=== PATIENT | female | born 1940 | race Caucasian/White ===

== ENCOUNTER → 2023-07-09 | Outpatient (REF) | payer MEDICARE, OTHER ==
[2023-07-09 12:13] LABS: BASO # 0.1 10^3/uL (0.0-0.2); BASO % 0.6 % (0.0-1.0); EOS # 0.2 10^3/uL (0.0-0.5); EOS % 1.8 % (0.0-3.0); HEMATOCRIT 43.6 % (36.0-47.0); HEMOGLOBIN 14.3 g/dl (12.0-15.5); LYMPH # 2.3 10^3/uL (1.5-5.0); MEAN CORPUSCULAR HGB CONC 32.8 g/dl (32.0-36.5); MEAN CORPUSCULAR VOLUME 91.6 fl (80.0-96.0); MONO # 0.7 10^3/uL (0.0-0.8); MONO % 7.9 % (2.0-8.0); NEUTROPHILS # 5.2 10^3/uL (1.5-8.5); NEUTROPHILS % 62.1 % (36.0-66.0); PLATELET COUNT, AUTOMATED 314 10^3/uL (150-450); RED BLOOD COUNT 4.76 10^6/uL (4.00-5.40); WHITE BLOOD COUNT 8.4 10^3/uL (4.0-10.0)
[2023-07-09 12:30] LABS: ALBUMIN 3.9 G/DL (3.2-5.2); ALKALINE PHOSPHATASE 67 U/L (46-116); ALT/SGPT 16 U/L (7.0-40); AST/SGOT 20 U/L (<34); BILIRUBIN,TOTAL 0.7 MG/DL (0.3-1.2); BLOOD UREA NITROGEN 14 MG/DL (9-23); CALCIUM LEVEL 9.6 MG/DL (8.3-10.6); CARBON DIOXIDE LEVEL 27 MMOL/L (20-31); CHLORIDE LEVEL 104 MMOL/L (98-107); CHOLESTEROL LEVEL 199 MG/DL (<200); CHOLESTEROL RISK RATIO 3.69 (<5); CREATININE FOR GFR 0.79 MG/DL (0.55-1.30); GLOMERULAR FILTRATION RATE > 60.0 (>32); GLUCOSE, FASTING 99 MG/DL (74-106); HDL CHOLESTEROL 53.9 MG/DL (>40); LDL CHOLESTEROL 122.1 MG/DL (<100); NON-HDL-C 145.1 MG/DL; POTASSIUM SERUM 4.6 MMOL/L (3.5-5.1); SODIUM LEVEL 137 MMOL/L (136-145); TOTAL PROTEIN 7.4 G/DL (5.7-8.2); TRIGLYCERIDES LEVEL 115 MG/DL (<150)
== END ==
LOC: M LABDRAWC 11:12
PROVIDERS: ATTEND Registered Nurse
DX: Z00.00 Encounter for general adult medical examination without abnormal findings (principal)

== ENCOUNTER → 2024-01-06 | Outpatient (CLI) | payer MEDICARE | LOC: M SOG 07:52 | PROVIDERS: ATTEND Physician Assistant | DX: M25.511 Pain in right shoulder (principal) ==

== ENCOUNTER → 2024-04-12 | Outpatient (CLI) | payer MEDICARE ==
[2024-04-12 15:52] LABS: BASO # 0.1 10^3/uL (0.0-0.2); BASO % 0.5 % (0.0-1.0); EOS % 0.3 % (0.0-3.0); HEMATOCRIT 40.8 % (36.0-47.0); HEMOGLOBIN 13.1 g/dl (12.0-15.5); LYMPH # 2.8 10^3/uL (1.5-5.0); LYMPH % 30.5 % (24.0-44.0); MEAN CORPUSCULAR HEMOGLOBIN 29.4 pg (27.0-33.0); MEAN CORPUSCULAR HGB CONC 32.1 g/dl (32.0-36.5); MEAN CORPUSCULAR VOLUME 91.7 fl (80.0-96.0); MONO # 0.8 10^3/uL (0.0-0.8); MONO % 8.4 % (2.0-8.0); NEUTROPHILS # 5.5 10^3/uL (1.5-8.5); NEUTROPHILS % 59.8 % (36.0-66.0); PLATELET COUNT, AUTOMATED 337 10^3/uL (150-450); RED BLOOD COUNT 4.45 10^6/uL (4.00-5.40); WHITE BLOOD COUNT 9.1 10^3/uL (4.0-10.0)
[2024-04-12 16:10] LABS: HEMOGLOBIN A1c 5.6 % (4.0-6.0)
[2024-04-12 16:18] LABS: ALBUMIN 3.5 G/DL (3.2-5.2); ALKALINE PHOSPHATASE 69 U/L (35-104); ALT/SGPT 16 U/L (7.0-40); AST/SGOT 22 U/L (<34); BILIRUBIN,TOTAL 0.4 MG/DL (0.3-1.2); BLOOD UREA NITROGEN 13 MG/DL (9-23); CALCIUM LEVEL 10.2 MG/DL (8.3-10.6); CARBON DIOXIDE LEVEL 26 MMOL/L (20-31); CHLORIDE LEVEL 104 MMOL/L (98-107); CREATININE FOR GFR 0.69 MG/DL (0.55-1.30); FREE T4 1.23 NG/DL (0.89-1.76); GLOMERULAR FILTRATION RATE > 60.0 (>32); GLUCOSE, FASTING 97 MG/DL (74-106); POTASSIUM SERUM 4.7 MMOL/L (3.5-5.1); SODIUM LEVEL 136 MMOL/L (136-145); THYROID STIMULATING HORMONE 1.152 uIU/ML (0.55-4.78); TOTAL PROTEIN 7.5 G/DL (5.7-8.2)
[2024-04-12 16:19] LABS: FOLATE 19.6 NG/ML (>5.4); VITAMIN B12 LEVEL 519 PG/ML (211-911)
[2024-04-12 16:34] LABS: THYROGLOBULIN ANTIBODY > 500.0 U/ML (<60.0)
== END ==
LOC: M PLAIMG 12:55
PROVIDERS: ATTEND Registered Nurse
DX: R06.02 Shortness of breath (principal); R42 Dizziness and giddiness; Z79.899 Other long term (current) drug therapy

== ENCOUNTER → 2024-05-16 | Outpatient (REF) | payer MEDICARE ==
[2024-05-16 18:16] LABS: URIC ACID 4.8 MG/DL (3.1-7.8)
[2024-05-16 18:19] LABS: C REACTIVE PROTEIN QUANTITATIV < 0.50 MG/DL (<1.0); IRON (FE) 113 UG/DL (50-170); PERCENT SATURATION 36.2 % (13.2-45.0); RHEUMATOID FACTOR QUANT 3.6 IU/ML (<14); TOTAL IRON BINDING CAPACITY 312 UG/DL (250-425)
[2024-05-16 18:22] LABS: FERRITIN 117.4 NG/ML (7.3-270.7)
== END ==
LOC: M LABDRAWC 10:29
PROVIDERS: ATTEND Registered Nurse
DX: R42 Dizziness and giddiness (principal)

== ENCOUNTER → 2024-05-20 | Outpatient (CLI) | payer MEDICARE | LOC: M CARPUL 10:23 | PROVIDERS: ATTEND Registered Nurse | DX: R06.02 Shortness of breath (principal); I08.8 Other rheumatic multiple valve diseases ==

== ENCOUNTER → 2024-07-14 | Outpatient (CLI) | payer MEDICARE | LOC: M EKG 10:45 | PROVIDERS: ATTEND Registered Nurse | DX: R42 Dizziness and giddiness (principal); R06.02 Shortness of breath ==

== ENCOUNTER → 2024-09-20 | Outpatient (CLI) | payer MEDICARE ==
[2024-09-20 17:51] LABS: BASO % 0.4 % (0.0-1.0); EOS % 0.4 % (0.0-3.0); HEMATOCRIT 43.1 % (36.0-47.0); HEMOGLOBIN 13.9 g/dl (12.0-15.5); LYMPH # 2.5 10^3/uL (1.5-5.0); LYMPH % 22.7 % (24.0-44.0); MEAN CORPUSCULAR HEMOGLOBIN 29.3 pg (27.0-33.0); MEAN CORPUSCULAR HGB CONC 32.3 g/dl (32.0-36.5); MEAN CORPUSCULAR VOLUME 90.9 fl (80.0-96.0); MONO # 0.9 10^3/uL (0.0-0.8); MONO % 8.2 % (2.0-8.0); NEUTROPHILS # 7.3 10^3/uL (1.5-8.5); NEUTROPHILS % 67.7 % (36.0-66.0); PLATELET COUNT, AUTOMATED 368 10^3/uL (150-450); RED BLOOD COUNT 4.74 10^6/uL (4.00-5.40); WHITE BLOOD COUNT 10.8 10^3/uL (4.0-10.0)
[2024-09-20 18:01] LABS: HEMOGLOBIN A1c 5.6 % (4.0-6.0)
[2024-09-20 18:12] LABS: ALBUMIN 3.8 G/DL (3.2-5.2); BILIRUBIN,TOTAL 0.4 MG/DL (0.3-1.2); CALCIUM LEVEL 9.8 MG/DL (8.3-10.6); CHOLESTEROL RISK RATIO 3.89 (<5); CREATININE FOR GFR 0.76 MG/DL (0.55-1.30); GLOMERULAR FILTRATION RATE 77.2 (>32); HDL CHOLESTEROL 49.3 MG/DL (>40); LDL CHOLESTEROL 103.9 MG/DL (<100); NON-HDL-C 142.7 MG/DL; POTASSIUM SERUM 4.8 MMOL/L (3.5-5.1); TOTAL PROTEIN 7.5 G/DL (5.7-8.2)
[2024-09-20 18:13] LABS: THYROID STIMULATING HORMONE 0.864 uIU/ML (0.55-4.78)
== END ==
LOC: M PLALAB 15:08
PROVIDERS: ATTEND Internal Medicine Cardiovascular Disease
DX: R00.2 Palpitations (principal); R94.31 Abnormal electrocardiogram [ECG] [EKG]; R06.09 Other forms of dyspnea; Z13.1 Encounter for screening for diabetes mellitus; Z13.29 Encounter for screening for other suspected endocrine disorder; I50.9 Heart failure, unspecified; I48.0 Paroxysmal atrial fibrillation; E78.2 Mixed hyperlipidemia

== ENCOUNTER → 2024-12-11 | Outpatient (CLI) | payer MEDICARE | LOC: M RAD 12:54 | PROVIDERS: ATTEND Student in an Organized Health Care Education/Training Program | DX: M79.674 Pain in right toe(s) (principal); M20.11 Hallux valgus (acquired), right foot ==

== ENCOUNTER → 2025-02-17 | Outpatient (CLI) | payer MEDICARE | LOC: M SOG 07:24 | PROVIDERS: ATTEND Physician Assistant | DX: M25.511 Pain in right shoulder (principal); M19.011 Primary osteoarthritis, right shoulder ==

== ENCOUNTER → 2025-03-28 | Outpatient (REF) | payer MEDICARE ==
[2025-03-28 18:15] LABS: ALT/SGPT 16.0 U/L (7.0-40); AST/SGOT 29.0 U/L (<34); CALCIUM LEVEL 9.8 MG/DL (8.3-10.6); CARBON DIOXIDE LEVEL 28.0 MMOL/L (20-31); CHLORIDE LEVEL 101.0 MMOL/L (98-107); CREATININE FOR GFR 0.75 MG/DL (0.55-1.30); GLOMERULAR FILTRATION RATE 78.5 (>32); POTASSIUM SERUM 4.5 MMOL/L (3.5-5.1); SODIUM LEVEL 137.0 MMOL/L (136-145)
[2025-03-28 18:27] LABS: BASO # 0.0 10^3/uL (0.0-0.2); BASO % 0.5 % (0.0-1.0); EOS # 0.2 10^3/uL (0.0-0.5); EOS % 2.9 % (0.0-3.0); LYMPH # 2.4 10^3/uL (1.5-5.0); LYMPH % 29.1 % (24.0-44.0); MONO # 0.8 10^3/uL (0.0-0.8); MONO % 10.1 % (2.0-8.0); NEUTROPHILS # 4.6 10^3/uL (1.5-8.5); NEUTROPHILS % 56.5 % (36.0-66.0); PLATELET COUNT, AUTOMATED 360 10^3/uL (150-450)
== END ==
LOC: M LABDRAWC 17:08
PROVIDERS: ATTEND Registered Nurse
DX: Z01.818 Encounter for other preprocedural examination (principal)